=== PATIENT | male | born 1960 | race African-American/Black ===

== ENCOUNTER → 2017-10-15 15:46 | Outpatient (CLI) | payer BC, MEDICARE, SELFPAY ==
--- NOTE | 2017-10-15 15:48 | CT_ITS ---
STUDY: CT MAXILLOFACIAL SINUSES REASON FOR EXAM: Male, 57 years old. Sinusitis RADIATION DOSAGE (If Supplied By Facility): CTDIvol = ( 33.06 ) mGy, DLP = ( 871.04 ) mGycm TECHNIQUE: The patient was scanned in a multi detector CT scanner. High resolution axial imaging was performed without the administration of intravenous contrast material. Sagittal and coronal images were reconstructed. Individualized dose optimization techniques were used for this CT. COMPARISON: None. FINDINGS: FRONTAL SINUSES: Normal aeration, without mucosal inflammatory disease. ETHMOIDAL SINUSES: There is trace ethmoid sinus mucosal thickening. MAXILLARY SINUSES: Normal aeration, without mucosal inflammatory disease. SPHENOIDAL SINUSES: Normal aeration, without mucosal inflammatory disease. There is patency of the bilateral maxillary infundibuli with normal uncinate processes, ethmoid bullae, and hiatus semilunaris. Normal bilateral middle turbinates. Normal bilateral inferior turbinates. There is rightward nasal deviation. There is patency of the bilateral nasal airways. The visualized osseous structures are normal. The visualized bilateral orbital contents are normal. CT/Sinus/Facial Bone IMPRESSION: Trace ethmoid sinusitis. Electronically Signed: Leatha Aldana MD at 17:59 EST Tel , Service support ,
== END ==
PROVIDERS: Family Provider Internal Medicine; PCP Internal Medicine; Visit Provider Otolaryngology Otolaryngology/Facial Plastic Surgery
DX: J32.9 Chronic sinusitis, unspecified (principal)
CPT/HCPCS: 70486

== ENCOUNTER 2023-11-07 16:49 | Emergency (ER) | payer MEDICARE, SELFPAY ==
[2023-11-07 16:50] VITALS: BP 135/80; PULSE 67; RESP 18; TEMP 36.1; O2SAT 97; BMI 32.5
--- NOTE | 2023-11-07 17:26 | RAD_ITS ---
INDICATION: injury EXAMINATION/TECHNIQUE: X-RAY - RIGHT XR Elbow Min 3 Views COMPARISON: None. FINDINGS: SOFT TISSUES: No soft tissue swelling or gas. No radiopaque foreign body. BONES/JOINTS: There is no displacement of the anterior or posterior fat pads. No acute fracture or subluxation. There is normal alignment. There is a prominent osteophyte arising from the olecranon with a linear defect at the base of the osteophyte. This is of uncertain acuity. No displacement or angulation. Preservation of the joint space. No sclerotic or destructive changes observed. RAD/Elbow min 3 Views IMPRESSION: 1. No acute fractures malalignment or joint space abnormality. 2. Coarse osteophyte arising from the olecranon with linear defect at the base of the osteophyte. This is of uncertain acuity however no displacement or angulation noted. Electronically Signed: Paul Warner MD at 18:11 EDT ,
--- NOTE | 2023-11-07 18:05 | EDS_ITS ---
HPI History of Present Illness Chief Complaint: Upper Extremity Injury Informant: patient Narrative Narrative: 63-year-old male presenting to the emergency department chief complaint of right elbow pain. Patient states that last evening he was trying to get his g randchildren off the basketball court and he went up for a rebound and he got sandwiched and he felt an immediate pain in the right posterior elbow as he came down with a rebound. He notes painful extension and flexion at the elbow joint. He has no pain pronation supination. He points to the posterior medial aspect as the area that hurts him the most. He notes some bruising that is appeared ov er the antecubital fossa. Neurovascularly he appears intact. He appears uninjured from the elbow distally [facility] Medical History Back pain Diabetes Hypertension Neuropathy Sciatic leg pain Home Medications Ketoconazole 120 ml TP DAILY 04/20/17 [History Last Taken Unknown] aspirin 81 mg tablet,delayed release 81 mg PO DAILY 04/20/17 [History Last Taken Unknown] clonazepam 1 mg tablet 1 mg PO BID 04/20/17 [History Last Taken Unknown] fluticasone propionate 50 mcg/actuation nasal spray,suspension 2 spray DAILY 04/20/17 [History Last Taken Unknown] hydroxyzine HCl 10 mg tablet 10 mg PO TID PRN PRN Itching 04/20/17 [History Last Taken Unknown] lisinopril 5 mg tablet 5 mg PO DAILY 04/20/17 [History Last Taken Unknown] triamterene 37.5 mg-hydrochlorothiazide 25 mg tablet (Maxzide-25mg) 1 tab PO DAILY 04/20/17 [History Last Taken Unknown] verapamil 240 mg 24 hr capsule,extended release 240 mg PO DAILY 04/20/17 [History Last Taken Unknown] oxycodone-acetaminophen 5 mg-325 mg tablet (Percocet) 1 tab PO Q6H PRN pain 3 days #12 tabs 11/07/23 [Rx Last Taken Unknown] Allergy/AdvReac Type Severity Reaction Status Date / Time acetaminophen [From Vicodin] Allergy Hives Verified 11/07/23 16:50 hydrocodone [From Vicodin] Allergy Hives Verified 11/07/23 16:50 Sulfa (Sulfonamide Allergy Hives Verified 11/07/23 16:50 Antibiotics) Social History Smoking Status: Former smoker ROS ROS ED Constitutional Constitutional ED: Denies chills or weight loss Eyes Eyes: Denies change in vision or diplopia ENT ENT ED: Denies ear pain, rhinorrhea or sore throat Cardiovascular Cardiovascular: Denies chest pain, orthopnea, palpitations or racing heartbeat Respiratory/Chest Respiratory/Chest: Denies cough, dyspnea or orthopnea Gastrointestinal Gastrointestinal: Denies abdominal pain, diarrhea, nausea or vomiting Genitourinary Genitourinary ED: Reports other Details: See history of present illness ; Denies dysuria, hematuria or urinary frequency Musculoskeletal Musculoskeletal: Denies arthralgias or myalgias Integumentary Denies abscess or rash Neurologic Neurologic: Denies headache(s) or weakness Psychiatric Psychiatric: Denies anxiety, depression, suicidal ideation or suicidal thoughts Endocrine Endocrinology: Denies polydipsia, polyphagia or polyuria Allergic/Immunologic Allergic/Immunologic ED: Denies mouth swelling, tongue swelling or urticaria EXAM Physical Exam Const Vital Signs: 11/07/23 16:50 Temperature 96.9 F L Temperature Source Temporal Pulse Rate 67 Respiratory Rate 18 Blood Pressure 135/80 H Blood Pressure Mean 98 Pulse Ox 97 Oxygen Delivery Method Room Air Positive well nourished and well developed General Appearance ED: well developed HEENT Reports normocephalic, head/scalp atraumatic and moist mucous membranes Eyes PERRL and EOMs intact bilaterally Neck no lymphadenopathy, supple and no JVD Resp normal respiratory effort and clear to auscultation bilaterally Cardio regular rate, regular rhythm and no murmurs GI normal to inspection, nondistended, normoactive bowel sounds and non-tender Palpation: soft Back/Spine no CVA tenderness and normal ROM Extremity Extremity Narrative: There is swelling located over the posterior aspect of the right elbow. He has limited full extension and pain with flexion. He has normal supination and pronation. Neurovascular intact post application. There is a questionable palpable defect of the triceps tendon on exam. He is tender posterior medially. General Extremety ED: Negative for edema General Extremity: Negative for edema Neuro oriented x3 and CN's II-XII intact bilaterally Sensorium / Orientation: alert Motor Exam: strength 5/5 throughout Psych mental status grossly normal Mood & Affect: Negative for depressed or tearful Skin no rashes or lesions noted and no wounds MDM MDM MDM Narrative Medical decision making narrative: My independent interpretation of the plain films of the right elbow is acute fracture of the olecranon. Patient was updated I placed him in a posterior long-arm Ortho-Glass splint. He was neurovascular intact pre and post application. He was given a sling and I will write for Percocet for pain which the patient states he has had before and can take without difficulty. He wishes to see [facility] orthopedics will refer him back there as she seen them in the past. History & Record Review Discussion w/independent historian: Patient Discharge Plan Triage Chief Complaint: Upper Extremity Injury ED Provider: Daniel Lambert Dx/Rx/DC Orders Clinical Impression: Fracture, olecranon Instructions: ED Elbow Fracture Prescriptions: New oxycodone-acetaminophen [Percocet] 5-325 mg tablet 1 tab PO Q6H PRN (Reason: pain) 3 Days Qty: 12 0RF No Action clonazepam 1 MG tablet 1 mg PO BID aspirin 81 MG tablet,delayed release (DR/EC) 81 mg PO DAILY triamterene-hydrochlorothiazid [Maxzide-25mg] 1 EACH tablet 1 tab PO DAILY lisinopril 5 MG tablet 5 mg PO DAILY hydroxyzine HCl 10 MG tablet 10 mg PO TID PRN PRN (Reason: Itching) fluticasone propionate 1 SPRAY spray,suspension 2 spray NASAL DAILY verapamil 240 MG capsule,ext rel. pellets 24 hr 240 mg PO DAILY Ketoconazole 120 ML Shampoo 120 ml TP DAILY Primary Care Provider: CELINA HAMILTON Referrals: Rakesh Shields MD [Non-Staff] - As soon as possible CELINA HAMILTON NP-C [Primary Care Provider] - Disposition Disposition: Home, Self Care
[2023-11-07 18:29] VITALS: BP 132/80; PULSE 67; RESP 18; TEMP 36.6; O2SAT 98
== END 2023-11-07 18:30 | disposition home or self-care (01) ==
PROVIDERS: Emergency Provider Emergency Medicine; PCP Nurse Practitioner; Visit Provider Emergency Medicine
DX: S52.021A Displaced fracture of olecranon process without intraarticular extension of right ulna, initial encounter for closed fracture (principal); E11.9 Type 2 diabetes mellitus without complications; Z87.891 Personal history of nicotine dependence; I10 Essential (primary) hypertension; Z79.82 Long term (current) use of aspirin; W51.XXXA Accidental striking against or bumped into by another person, initial encounter; Y93.67 Activity, basketball; Y92.310 Basketball court as the place of occurrence of the external cause
CPT/HCPCS: 29105; 29405; 73080; 99283